=== PATIENT | female | born 1995 | race Caucasian/White ===

== ENCOUNTER 2020-01-25 00:21 | Outpatient (CLI) | payer OTHER, SELFPAY ==
[2020-01-25 18:42] LABS: SARS-CoV-2 RNA PCR Negative
== END 2020-01-25 00:22 | disposition home or self-care (01) ==
LOC: ANHCOVIDDT 00:22
PROVIDERS: Visit Provider Internal Medicine Gastroenterology
DX: Z01.812 Encounter for preprocedural laboratory examination (principal); Z11.59 Encounter for screening for other viral diseases
CPT/HCPCS: 87635; C9803; U0003

== ENCOUNTER 2020-01-26 08:38 | Outpatient (CLI) | payer OTHER, SELFPAY ==
[2020-01-26 09:34] LABS: Beta HCG Quantitative 17.42 mIU/ML
== END 2020-01-26 08:39 | disposition home or self-care (01) ==
PROVIDERS: Visit Provider Obstetrics & Gynecology
DX: N92.6 Irregular menstruation, unspecified (principal)
CPT/HCPCS: 36415; 84702

== ENCOUNTER 2020-02-01 16:09 | Outpatient (CLI) | payer OTHER, SELFPAY ==
[2020-02-04 20:38] LABS: Progesterone 15.8 ng/mL (***)
== END 2020-02-01 16:10 | disposition home or self-care (01) ==
PROVIDERS: Visit Provider Obstetrics & Gynecology
DX: Z34.90 Encounter for supervision of normal pregnancy, unspecified, unspecified trimester (principal); Z3A.00 Weeks of gestation of pregnancy not specified
CPT/HCPCS: 36415; 84144; 84702

== ENCOUNTER 2020-05-23 16:06 | Outpatient (CLI) | payer OTHER, SELFPAY ==
[2020-05-23 18:11] LABS: Glucose 1 Hour PP 50gm Dose 110 mg/dL
== END 2020-05-23 16:07 | disposition home or self-care (01) ==
LOC: ANHLAB 16:08
PROVIDERS: Visit Provider Obstetrics & Gynecology
DX: O09.91 Supervision of high risk pregnancy, unspecified, first trimester (principal); Z3A.00 Weeks of gestation of pregnancy not specified
CPT/HCPCS: 36415; 82947

== ENCOUNTER 2020-07-20 14:37 | Outpatient (NON) | payer OTHER, SELFPAY | END 2020-07-20 14:38 | PROVIDERS: Visit Provider Obstetrics & Gynecology | DX: R19.7 Diarrhea, unspecified (principal) | CPT/HCPCS: 87045; 87046; 87177; 87209; 87427 ==

== ENCOUNTER 2020-07-21 11:07 | Outpatient (RCR) | payer OTHER, SELFPAY ==
--- NOTE | ~2020-07-21 | US_ITS ---
US OB limited 07/21/2020 12:24 Indication: Polyhydramnios Procedure: High-resolution Limited obstetrical ultrasound Comparison: No prior studies for comparison. Findings: There is a single living intrauterine in transverse presentation. Placenta is pos terior/fundal. AISHA is normal measuring 14.9 cm (normal range for gestational age is 9.2-23.1 cm). Fet al heart rate is 142 BPM. Impression: 1: Normal AISHA measures 14.9 cm. Reviewed, dictated and finalized at location A. STAFF Impression: 1: Normal AISHA measures 14.9 cm.
[2020-07-21 12:30] VITALS: BP 105/71; PULSE 101
== END 2020-09-22 07:41 | disposition home or self-care (01) ==
LOC: ANHOBOP 11:07
PROVIDERS: Visit Provider Obstetrics & Gynecology
DX: O36.8130 Decreased fetal movements, third trimester, not applicable or unspecified (principal); Z3A.29 29 weeks gestation of pregnancy
CPT/HCPCS: 59025; 76815

== ENCOUNTER 2020-07-26 16:20 | Outpatient (CLI) | payer OTHER, SELFPAY ==
[2020-07-26 18:05] LABS: Basophils Percent Auto 0.2 % (0.2-1.2); Eosinophils Absolute Auto 0.1 K/mm3 (0-0.3); Eosinophils Percent Auto 0.8 % (0-4.4); Hematocrit 35.7 % (37.0-47.0); Hemoglobin 11.4 g/dL (12.0-15.0); Immature Granulocyte Percent A 0.8 % (0-0.5); Lymphocytes Absolute Auto 2.83 K/mm3 (0.9-3.2); Lymphocytes Percent Auto 23.3 % (18.3-44.2); Mean Corpuscular HGB Conc 31.9 g/dl (32-36); Mean Corpuscular Hemoglobin 25.9 pg (26-34); Mean Corpuscular Volume 81.1 fl (80-100); Mean Platelet Volume 9.6 fl (7.4-10.4); Monocytes Absolute Auto 0.8 K/mm3 (0.1-0.6); Monocytes Percent Auto 6.2 % (2.6-8.5); Neutrophils Absolute Auto 8.3 K/mm3 (1.3-6.7); Neutrophils Percent Auto 68.7 % (45.5-73.1); Platelet Count Result 390 k/mm3 (150-375); Red Cell Distribution Width 15.4 % (11.5-14.5); White Blood Count 12.1 K/mm3 (4.5-10.0)
[2020-07-26 18:17] LABS: Glucose 1 Hour PP 50gm Dose 131 mg/dL
[2020-07-26 18:58] LABS: HIV 1/2 Ab P24 Ag Result Negative (Negative)
[2020-07-27 07:43] LABS: Rapid Plasma Reagin Non-Reactive (NonReactive)
== END 2020-07-26 16:21 | disposition home or self-care (01) ==
PROVIDERS: Visit Provider Obstetrics & Gynecology
DX: O09.91 Supervision of high risk pregnancy, unspecified, first trimester (principal); Z3A.00 Weeks of gestation of pregnancy not specified
CPT/HCPCS: 36415; 82947; 85025; 86592; 86703; G0432

== ENCOUNTER 2020-08-01 07:41 | Outpatient (CLI) | payer OTHER, SELFPAY ==
[2020-08-01 08:07] LABS: Glucose Fasting Gestational 80 mg/dL (>/=95)
[2020-08-01 10:10] LABS: Glucose 1 Hour Gest 157 mg/dL (>/=180)
[2020-08-01 10:29] LABS: Glucose 2 Hour Gest 116 mg/dL (>/= 155)
[2020-08-01 11:38] LABS: Glucose 3 Hour Gest 95 mg/dL (>/=140)
== END 2020-08-01 07:42 | disposition home or self-care (01) ==
PROVIDERS: Visit Provider Obstetrics & Gynecology
DX: R73.09 Other abnormal glucose (principal)
CPT/HCPCS: 36415; 82951; 82952

== ENCOUNTER 2020-09-20 16:52 | Inpatient (IN) | payer OTHER, SELFPAY ==
[2020-09-20 17:08] VITALS: BMI 45.3
[2020-09-20 17:19] VITALS: BP 143/103; PULSE 111
[2020-09-20 17:30] VITALS: TEMP 37.1
[2020-09-20 17:41] VITALS: BP 110/70; PULSE 101
[2020-09-20 17:50] LABS: Basophils Percent Auto 0.2 % (0.2-1.2); Eosinophils Absolute Auto 0.1 K/mm3 (0-0.3); Eosinophils Percent Auto 0.4 % (0-4.4); Hemoglobin 10.7 g/dL (12.0-15.0); Immature Granulocyte Absolute 0.09 K/mm3 (0.00-0.031); Immature Granulocyte Percent A 0.7 % (0-0.5); Lymphocytes Absolute Auto 3.03 K/mm3 (0.9-3.2); Mean Corpuscular HGB Conc 31.5 g/dl (32-36); Mean Corpuscular Hemoglobin 24.9 pg (26-34); Mean Corpuscular Volume 79.1 fl (80-100); Monocytes Percent Auto 8.6 % (2.6-8.5); Neutrophils Absolute Auto 7.9 K/mm3 (1.3-6.7); Neutrophils Percent Auto 65.1 % (45.5-73.1); Nucleated Red Blood Cells Perc 0.2 % (0.0-0.2); Platelet Count Result 380 k/mm3 (150-375); Red Cell Distribution Width 17.2 % (11.5-14.5); White Blood Count 12.1 K/mm3 (4.5-10.0)
[2020-09-20] MEDS: DINOPROSTONE 10 MG VAG INSERT VAGINAL (17:56)
[2020-09-20 19:08] VITALS: BP 138/84; PULSE 93
[2020-09-20 19:31] VITALS: BP 109/51; PULSE 82
[2020-09-21] VITALS (165 sets, daily range): BP systolic 94–143; BP diastolic 36–111; PULSE 79–117; TEMP 36.2–37.2; O2SAT 89–100
--- NOTE | 2020-09-21 07:04 | WPDANESEPP ---
Anes - Eval Pre Procedure Procedure: Labor Epidural Date/Time: 09/21/20 07:04 Surgeon: Garrison Preop Diagnosis: Labor pain Pre Op Diagnosis: Induction of Labor Patient Data Age: 25 Gender: F Height: 5 ft 1 in Weight: 109 kg Last Vital Signs Temp 36.3 C L 09/21/20 05:07 Pulse 92 09/21/20 05:05 BP 121/79 09/21/20 05:05 Allergies Allergy/AdvReac Type Severity Reaction Status Date / Time No Known Allergies Allergy Unknown Verified 09/20/20 17:14 Home Medications Medication Instructions Recorded Confirmed Type omeprazole 20 mg capsule,delayed 20 mg PO DAILY PRN 01/08/20 09/20/20 History release hydrocortisone 5 mg PO TID 01/20/20 09/20/20 History prenat.vits,srinivasan,[id number] 1 tablet PO DAILY 04/06/20 09/20/20 History nystatin-triamcinolone 1 applic TOPICAL TID PRN 07/21/20 09/20/20 History ondansetron 4 mg disintegrating 4 mg PO Q8H PRN #30 tablet 08/05/20 09/20/20 Rx tablet Laboratory Tests 09/20/20 09/20/20 09/20/20 17:35 17:35 17:35 WBC 12.1 K/mm3 H K/mm3 (4.5-10.0) RBC 4.30 M/mm3 M/mm3 (4.2-5.4) Hgb 10.7 g/dL L g/dL (12.0-15.0) Hct 34.0 % L % (37.0-47.0) MCV 79.1 fl L fl (80-100) MCH 24.9 pg L pg (26-34) MCHC 31.5 g/dl L g/dl (32-36) RDW 17.2 % H % (11.5-14.5) Plt Count 380 k/mm3 H k/mm3 (150-375) MPV 10.0 fl fl (7.4-10.4) Immature Gran % (Auto) 0.7 % H % (0-0.5) Neut % (Auto) 65.1 % % (45.5-73.1) Lymph % (Auto) 25.0 % % (18.3-44.2) [place] % (Auto) 8.6 % H % (2.6-8.5) Eos % (Auto) 0.4 % % (0-4.4) Baso % (Auto) 0.2 % % (0.2-1.2) Lymph # (Auto) 3.03 K/mm3 K/mm3 (0.9-3.2) [place] # (Auto) 1.0 K/mm3 H K/mm3 (0.1-0.6) Eos # (Auto) 0.1 K/mm3 K/mm3 (0-0.3) Baso # (Auto) 0.0 K/mm3 K/mm3 (0.0-0.1) Abs Immat Gran (auto) 0.09 K/mm3 H K/mm3 (0.00-0.031) Absolute Neuts (auto) 7.9 K/mm3 H K/mm3 (1.3-6.7) Absolute Nucleated RBC 0.0 K/mm3 K/mm3 (0.0-0.012) Nucleated RBC % 0.2 % % (0.0-0.2) RPR Pending Blood Type O Positive Antibody Screen Negative : gestational age (SANT[place] 10/06/20, ) HCG: positive Patient hx anesthesia problems: none Family hx anesthesia problems: none [facility] Past Medical History Medical History BRBPR (bright red blood per rectum) Gale syndrome Diverticulitis large intestine GERD (gastroesophageal reflux disease) History of pituitary adenoma Nausea Pituitary adenoma Surgical History Surgical History Hx of brain surgery Family History Family History Other No pertinent family history Social History Social History Smoking status: Never smoker Alcohol intake: never Substance use: never 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
[2020-09-21 07:27] LABS: Rapid Plasma Reagin Non-Reactive (NonReactive)
[2020-09-21] MEDS: OXYTOCIN 30 UNITS/NS 500 ML 30 UNITS/500 ML BAG IV CONT (08:04)
[2020-09-21] MEDS: LACTATED RINGERS 1,000 ML 125 ML IV CONT ×3 (08:04→19:44)
[2020-09-21] MEDS: HYDROCORTISONE SODIUM SUCCINATE 100 MG/2 ML VIAL IV PUSH ×2 (08:08→15:59)
--- NOTE | 2020-09-21 12:31 | PM.IMHP ---
H&P: HPI History of Present Illness Date/Time: 09/21/20 12:31 Chief Complaint: Medical induction of labor. Narrative: Mable Roca is a 25 year old female at 35 6/7 weeks admitted for MIL for intrauterine growth restriction. Last ultrasound with efw at 4%. She has ranged from 3-6% since diagnosis. She has had reassuring testing and normal doppler studies. PNC significant for secondary adrenal insufficiency status post resection resection of pituitary adenoma. She has been maintained on oral hydrocortisone. Her maintenance has been 10mg twice a day. She has not had any exacerbation symptoms. She has been seen by hydrometeorologist and neurologist. She also had history of polyhydramnios which resolved. History of UTI during which was treated. In office cervix int os closed thick. Labs reviewed. GBS neg. Review of Systems Review of Systems: All systems reviewed & are unremarkable except as noted in HPI and below Constitutional: Constitutional: Reports no additional constitutional complaints and Denies headache(s) Eyes: Eyes: Denies spots in vision ENT: Reports system reviewed and no additional complaints, except as documented and Denies headache(s) Cardiovascular: Cardiovascular: Denies chest pain and Denies dyspnea Respiratory: Respiratory: Denies dyspnea Gastrointestinal: Gastrointestinal: Reports no additional gastrointestinal complaints Genitourinary: Genitourinary: Reports amenorrhea Musculoskeletal: Musculoskeletal: Reports no additional musculoskeletal complaints Integumentary/Breasts: Skin/Breast: Denies breast mass and Denies rash Neurologic: Denies headache(s) Psychiatric: Psychiatric: Reports no additional psychiatric complaints PMFSH Past Medical History Medical History BRBPR (bright red blood per rectum) Gale syndrome Diverticulitis large intestine GERD (gastroesophageal reflux disease) History of pituitary adenoma Nausea Pituitary adenoma Surgical History Surgical History Hx of brain surgery Family History Family History Other No pertinent family history Social History Social History Smoking status: Never smoker Alcohol intake: never Substance use: never 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[employer] Gender identity (if verbalized by the patient): Female Spiritual care concerns: No Meds Home Medications and Allergies Home Medications Medication Instructions Recorded Confirmed Type omeprazole 20 mg capsule,delayed 20 mg PO DAILY PRN 01/08/20 09/20/20 History release hydrocortisone 5 mg PO TID 01/20/20 09/20/20 History prenat.vits,srinivasan,[id number] 1 tablet PO DAILY 04/06/20 09/20/20 History nystatin-triamcinolone 1 applic TOPICAL TID PRN 07/21/20 09/20/20 History ondansetron 4 mg disintegrating 4 mg PO Q8H PRN #30 tablet 08/05/20 09/20/20 Rx tablet Allergies Allergy/AdvReac Type Severity Reaction Status Date / Time No Known Allergies Allergy Unknown Verified 09/20/20 17:14 Vital Signs Vital Signs - 24 hr 09/20/20 17:19 09/20/20 17:30 09/20/20 17:41 Temperature 98.7 F Pulse Rate 111 H 101 H Blood Pressure 143/103 H 110/70 Pulse Oximetry 09/20/20 19:08 09/20/20 19:31 09/21/20 05:05 Temperature Pulse Rate 93 82 92 Blood Pressure 138/84 109/51 L 121/79 Pulse Oximetry 09/21/20 05:07 09/21/20 08:00 09/21/20 08:14 Temperature 97.4 F L 97.4 F L Pulse Rate 89 Blood Pressure 143/81 H Pulse Oximetry 09/21/20 08:31 09/21/20 09:01 09/21/20 09:31 Temperature Pulse Rate 90 93 94 Blood Pressure 127/74 120/76 114/79 Pulse Oximetry 09/21/20 10:01 09/21/20 10:31 09/21/20 11:01 Temperature Pulse Rate 86 95 96 Blood Pressure 123/79 133/73 125/73
--- NOTE | 2020-09-21 12:49 | P.PNOB_ITS ---
OB - PN: Subj Subjective Date/time seen: 09/21/20 0800 FHT 135 Cat 1, Ctx mild irreg 2-4 Cervix 1.5/50/-3. Will start Pitocin and Hydrocortisone IV. OB - PN: Obj Data Labs CBC & Chem 7: 09/20/20 17:35 Labs: Laboratory Results - last 24 hr 09/20/20 09/20/20 09/20/20 17:35 17:35 17:35 WBC 12.1 H RBC 4.30 Hgb 10.7 L Hct 34.0 L MCV 79.1 L MCH 24.9 L MCHC 31.5 L RDW 17.2 H Plt Count 380 H MPV 10.0 Immature Gran % (Auto) 0.7 H Neut % (Auto) 65.1 Lymph % (Auto) 25.0 [place] % (Auto) 8.6 H Eos % (Auto) 0.4 Baso % (Auto) 0.2 Lymph # (Auto) 3.03 [place] # (Auto) 1.0 H Eos # (Auto) 0.1 Baso # (Auto) 0.0 Abs Immat Gran (auto) 0.09 H Absolute Neuts (auto) 7.9 H Absolute Nucleated RBC 0.0 Nucleated RBC % 0.2 RPR Non-reactive Blood Type O Positive Antibody Screen Negative OB - PN A/P Time Spent With Patient Time: Total time spent is greater than 50% in coordination of care (as documented) at patient's floor/unit and/or counseling patient:
--- NOTE | 2020-09-21 14:04 | PM.OBPNVD ---
OB - PN: Subj Subjective Date/time seen: 09/21/20 14:04 FHT 135-140 Cat 1 ctx q 2. AROM clear with blood tinge. Cont pitocin. OB - PN: Obj Data Labs CBC & Chem 7: 09/20/20 17:35 Labs: Laboratory Results - last 24 hr 09/20/20 09/20/20 09/20/20 17:35 17:35 17:35 WBC 12.1 H RBC 4.30 Hgb 10.7 L Hct 34.0 L MCV 79.1 L MCH 24.9 L MCHC 31.5 L RDW 17.2 H Plt Count 380 H MPV 10.0 Immature Gran % (Auto) 0.7 H Neut % (Auto) 65.1 Lymph % (Auto) 25.0 [place] % (Auto) 8.6 H Eos % (Auto) 0.4 Baso % (Auto) 0.2 Lymph # (Auto) 3.03 [place] # (Auto) 1.0 H Eos # (Auto) 0.1 Baso # (Auto) 0.0 Abs Immat Gran (auto) 0.09 H Absolute Neuts (auto) 7.9 H Absolute Nucleated RBC 0.0 Nucleated RBC % 0.2 RPR Non-reactive Blood Type O Positive Antibody Screen Negative OB - PN A/P Time Spent With Patient Time: Total time spent is greater than 50% in coordination of care (as documented) at patient's floor/unit and/or counseling patient:
[2020-09-21] MEDS: ONDANSETRON INJ 4 MG/2 ML VIAL IV PUSH (14:41)
--- NOTE | 2020-09-21 21:30 | PM.OBPRVD ---
OB - Delivery Note Procedure Delivery date: 09/21/20 Procedure: Spontaneous vaginal delivery Induction method: per misoprostol protocol Delivery augmentation: rupture of membranes Delivery monitor: external FHT and internal uterine Route of delivery: Laceration Description: Vaginal - 1st Degree Delivery repair: vicryl (figure of eight 3.0 vicryl) Specimen: Yes (Placenta and cord) Quantitative Blood Loss (ml): 150 Anesthesia type: Epidural Disposition: floor Complications: None Narrative: Patient admitted for cervidil on 09/20/20 for IUGR. Cervix closed/thick. On the morning of 09/21/20 Cervidil removed. Cervix 1.5/50/-3. She was started on Pitocin and IV hydrocortisone. She requested an epidural. She had AROM at approximately 1345. IUPC placed due to inability to monitor contractions. She progressed to active labor and then complete. She pushed twice and delivered a female . Infant was vigorously crying upon delivery and placed on maternal abdomen. Delayed cord clamping. Placenta delivered spontaneously and intact. Uterine tone was good. She had a small laceration at vaginal introitus that had a some bleeding. Hemostasis obtained with a figure of eight stitch of 3.0 vicryl. Patient tolerated procedure. EBL 150cc. [place] Baby Date of : 09/21/20 Time of : 21:10 Weeks of gestation at delivery: 37 Infant gender: Female Weight (pounds): 5 Weight (ounces): 1 presentation: vertex position: Right Occiput Anterior Placenta delivery description: Spontaneous (intact) cord vessel description: Delayed Cord Clamping score one minute: 8 score five minutes: 8
[2020-09-21] MEDS: LANOLIN (LANSINOH) 7.5 GM CREAM 1 APPLIC TOPICAL (21:40)
[2020-09-21] MEDS: OXYTOCIN 30 UNITS/NS 500 ML 30 UNITS/500 ML BAG 125 UNITS IV CONT (21:40)
[2020-09-21] MEDS: BENZOCAINE 20% AER SPR (*SP) 56 GM CAN 1 SPRAY TOPICAL (21:40)
[2020-09-21] MEDS: WITCH HAZEL 40 PADS 1 PAD TOPICAL (21:40)
[2020-09-21] MEDS: IBUPROFEN 600 MG TABLET PO (22:07)
--- NOTE | 2020-09-21 23:38 | PC.NURSE ---
This patient, Mable Roca, was received from Labor & Delivery on 09/21/20 at 2337. Patient/family oriented to unit policies and routines
[2020-09-22] VITALS: BP 133/79; PULSE 93; RESP 16; TEMP 36.7; O2SAT 98
[2020-09-22] MEDS: HYDROCORTISONE SODIUM SUCCINATE 100 MG/2 ML VIAL IV PUSH ×3 (02:11→17:54)
[2020-09-22 05:23] VITALS: BP 127/68; PULSE 87; PULSE 93; RESP 16; TEMP 36.4; O2SAT 97; O2SAT 98
[2020-09-22 05:49] LABS: Hemoglobin 10.4 g/dL (12.0-15.0)
--- NOTE | 2020-09-22 08:40 | PM.OBPNVD ---
OB - PN: Subj Subjective Date/time seen: 09/22/20 08:40 No complaints. Mild lochia. No fatigue, SOB or chest pain. Patient comments: pain well controlled, tolerating diet and other (Decreasing lochia.) [place] baby status: doing well and nursing well feeding status: exclusively breast feeding OB - PN: Obj Data Labs CBC & Chem 7: 09/22/20 05:17 Labs: Laboratory Results - last 24 hr 09/22/20 05:17 Hgb 10.4 L Hct 33.0 L OB - PN A/P Plan day: 1 Plan: routine care Comments: Patient doing well. Continue IV hydrocortisone until 24 hours after delivery and then will resume oral steroids. Routine care. Time Spent With Patient Time: Total time spent is greater than 50% in coordination of care (as documented) at patient's floor/unit and/or counseling patient: Exam Extrem: Other: 1-2+ LE edema, neg leonora's bilat Psych: Affect: normal affect Other: Abd: fundus firm below umbilicus, nontender Perineum: healing Ext: nontender
--- NOTE | 2020-09-22 08:42 | WPDANLDPN2 ---
Anes-Prog Note L&D Date/Time: 09/22/20 08:42 Comfortable throughout: labor and delivery Neuraxial method: epidural Epidural/Spinal procedure site: clean & non-tender Neuro status: Neuro function grossly intact. Cardiovascular status: normal Respiratory status: normal Airway patency: baseline Mental status: baseline Post-Op hydration status: normal Vital Signs: Last Vital Signs Temp 97.6 F 09/22/20 05:23 Pulse 93 09/22/20 05:23 Resp 16 09/22/20 05:23 BP 127/68 09/22/20 05:23 Pulse Ox 98 09/22/20 05:23 Pain score (VAS): 0/10 I/O: Intake & Output 09/21/20 09/22/20 09/22/20 23:59 07:59 15:59 Intake Total 1000 250 Output Total 300 Balance 700 250 Post-procedural complaints: none Patient feedback: Patient satisfied with anesthetic care.
--- NOTE | 2020-09-22 08:45 | PC.NURSE ---
Consulted with patient, reports infant has fed well using a nipple shield since . Mother has slight discomfort with latch during most of the feeding. Advised warm moist heat for 10 minutes and lanolin. Reviewed infant feeding cues, frequencies, duration of feedings, feeding elimination flow sheet, and signs of adequate intake. Demonstrated stimulation techniques to wake for feeding. Assisted with to breast. Reviewed positioning/alignment in cross cradle, holding breast in U hold and guided asymmetrical latch on. Infant was sleepy and made weak attempts to latch. Attempt for 10-15 minutes with no success. Suggested skin to skin and attempt again in 30 minutes.
[2020-09-22] MEDS: IBUPROFEN 600 MG TABLET PO ×2 (09:22→16:54)
[2020-09-22] MEDS: MULTIVIT/MIN/PREN/FOL AC/IRON TABLET 1 TAB PO (09:22)
[2020-09-22] MEDS: DOCUSATE SODIUM 100 MG CAPSULE PO (09:22)
--- NOTE | 2020-09-22 09:30 | PC.NURSE ---
Assist with to breast. Demonstrated stimulation techniques to wake . remains sleepy. Assisted with to breast. Reviewed positioning/alignment in cross cradle, holding breast in U hold and guided asymmetrical latch on. Infant was sleepy and made weak attempts to latch. Attempt for 10-15 minutes with no success. Suggested skin to skin and attempt again in 30 minutes. Initialized on 09/22/20 13:53 - END OF NOTE
--- NOTE | 2020-09-22 11:05 | PC.NURSE ---
Attempt infant to breast. remains sleepy and not making attempt to open for latch. Discussed pumping or self expression to offer EBM for feeding. Mother is willing to pump. Mother would like to use her Spectra pump. Instructions given on breast pump care and usage, pumping schedule, nipple care, and collection and storage of breast milk. Encouraged [id number], breast massage and manual expression to stimulate supply. Assessed patient for correct flange size, placement and draw. Patient verbalizes and demonstrates understanding of instructions. 1 ml of EBM with 10 mls formula to infant for this feeding.
[2020-09-22 11:10] VITALS: BP 133/81; PULSE 83; RESP 18; TEMP 36.6; O2SAT 99
[2020-09-22 14:00] VITALS: BP 140/81; PULSE 87; RESP 18; TEMP 36.3; O2SAT 98
[2020-09-22 20:00] VITALS: BP 127/60; PULSE 78; RESP 16; TEMP 36.4; O2SAT 100
[2020-09-23 07:55] VITALS: BP 128/81; PULSE 65; RESP 18; TEMP 37; O2SAT 100
--- NOTE | 2020-09-23 08:27 | P.PNOB_ITS ---
OB - PN: Subj Subjective Date/time seen: 09/23/20 08:27 Patient comments: pain well controlled, tolerating diet and flatus present baby status: doing well and nursing well [place] feeding status: exclusively breast feeding Narrative: Pain well controlled Tolerating regular diet Ambulating and urinating without difficulty Lochia like her menses Baby girl doing well and BF OB - PN: Obj Data Labs CBC & Chem 7: 09/22/20 05:17 OB - PN A/P Plan day: 2 Plan: routine care, discharge home, follow up 6 weeks (PP checkup) and other Comments: f/u in [address] Ji Time Spent With Patient Time: Total time spent is greater than 50% in coordination of care (as documented) at patient's floor/unit and/or counseling patient: Time with patient: 15 - 25 minutes Review of Systems Constitutional: Constitutional: Reports as per HPI, Denies chills, Denies fever(s) and Denies headache(s) Eyes: Eyes: Denies blurry vision and Denies change in vision ENT: Reports Normal hearing present Cardiovascular: Cardiovascular: Denies chest pain, Denies syncope, Denies lightheadedness and Denies dyspnea Respiratory: Respiratory: Reports as per HPI, Denies cough and Denies dyspnea Gastrointestinal: Gastrointestinal: Reports as per HPI Genitourinary: Genitourinary: Reports as per HPI Musculoskeletal: Musculoskeletal: Reports as per HPI Exam Const: General: cooperative, healthy appearing, comfortable, no acute distress, well developed, alert, awake, Physically active and well groomed Nutritional Appearance: well nourished Orientation/consciousness: patient oriented x3 Limitations: no limitations HENMT: Head: normal to inspection Resp: Effort & Inspection: normal respiratory effort and able to speak in complete sentences Auscultation: clear to auscultation bilaterally Cardio: Rate: regular rate Rhythm: regular rhythm GI: Inspection: normal to inspection GI Palp: No abdominal tenderness, Yes Soft to palpation and Yes Other GI palpation findings present (Fundus firm below umbilicus) Auscultation: normal bowel sounds Rectal Exam: deferred Neuro: General: patient oriented x3 Extrem: General: normal to inspection, full ROM and no calf tenderness
--- NOTE | 2020-09-23 08:31 | PM.OBDSVD ---
DS: Admitting Diagnosis Admitting Diagnosis Admitting Diagnosis: IOL for IUGR OB - DS: Summary OB Procedures : Ultrasound OB Procedures Intrapartum: Spontaneous Vag Delivery OB Procedures: : None Peripartum Data Infant Delivery Method: Natural Vaginal Laceration Description: Vaginal - 1st Degree complications: none Status at Discharge Functional status at discharge: independent ambulation Overall status at discharge: patient is progressing back to baseline Time Spent with Patient Time attestation: Total time spent providing and/or coordinating discharge services: Exam Const: General: cooperative, healthy appearing, comfortable, no acute distress, well developed, alert, awake and Physically active Nutritional Appearance: well nourished Orientation/consciousness: patient oriented x3 Limitations: no limitations HENMT: Head: normal to inspection Ears: hearing grossly normal bilaterally Resp: Effort & Inspection: normal respiratory effort and able to speak in complete sentences Auscultation: clear to auscultation bilaterally Cardio: Rate: regular rate Rhythm: regular rhythm GI: Inspection: normal to inspection GI Palp: No abdominal tenderness, Yes Soft to palpation and Yes Other GI palpation findings present (Fundus firm and below umbilicus) Auscultation: normal bowel sounds Rectal Exam: deferred Skin: General skin exam: normal color Neuro: General: oriented to person, oriented to place, oriented to time, patient oriented x3 and moves all extremities Cognition (Neuro): normal cognition Speech: normal speech Extrem: General: normal to inspection, full ROM and no calf tenderness Psych: Appearance: grossly normal Mental Status: mental status grossly normal Speech and movement: Normal speech and movement present Affect: normal affect Attitude: cooperative Thought process: Normal thought process present Thought content: Yes Normal thought content present Insight: Good insight present (Psych) Judgement: Good judgement present (Psych) DS: Data Data Completed and Pending Pending studies at discharge: Pending at discharge 09/21/20 21:14 Surgical [PTH] Routine Discharge Plan Discharge Attending physician on discharge: Noris Gomez Discharging Clinician: Noris Gomez Patient Disposition: Home, Self-Care Activity: pelvic rest Diet: regular Patient Instructions: Antibiotic Form Stand Alone Forms: General Discharge Information Follow-up/Referrals: Zeyad Ji MD [Physician] - Discharge Medications: New ibuprofen 600 mg Tablet 600 mg PO Q6H PRN (Reason: Cramping) Qty: 60 RF: 0 docusate sodium 100 mg Capsule 100 mg PO BID PRN (Reason: Constipation) Qty: 60 RF: 0 Continued prenat.vits,srinivasan,[id number] Tablet 1 tablet PO DAILY RF: 0 omeprazole 20 mg capsule,delayed release(DR/EC) 20 mg PO DAILY PRN (Reason: Heartburn) RF: 0 hydrocortisone 5 mg Tablet 5 mg PO TID RF: 0 Discontinued nystatin-triamcinolone 100,000-0.1 unit/g-% cream 1 applic TOPICAL TID PRN (Reason: Rash) RF: 0 ondansetron 4 mg tablet,disintegrating 4 mg PO Q8H PRN (Reason: nausea and vomiting) Qty: 30 RF: 0 Date of admission: 09/20/20 16:52 Admitting Provider: Zeyad Ji Attending physician on admission: Zeyad Ji Condition: Stable
[2020-09-23] MEDS: MULTIVIT/MIN/PREN/FOL AC/IRON TABLET 1 TAB PO (09:17)
--- NOTE | 2020-09-23 10:00 | PC.NURSE ---
Consult with pt., parents report infant has been sleepy during the night and mother has supplemented every feeding. Mother is teary with discussion and states she wishes to move toward exclusive breastmilk if does not begin to eagerly latch. Assured mother to continue with supplement and pump, milk should transition in within a few days and infant should be more awake and eager with latching. Suggested massage, warm compresses to breast and few minutes of self expression. Infant is eagerly nippling 15-20 mls of formula. FOB is bottle feeding while mother pumps. Discussed increasing supplementation in small increments of 5mls for a few feedings as desires. Mother denies difficulties or discomfort with pumping and has a Spectra for home use. Mother is feeding as required and waking to feed if needed. is currently meeting outcomes for weight, output, jaundice and feeding frequencies. Mother states she feels confident to continue effective at home. Reviewed transition to breast milk, signs of adequate intake, and engorgement/relief. Instructed to call ICP if intake/output less than required. Reviewed regular medications mother is taking. Information provided per Marta. Reviewed community resources on the [facility] website and in the Mom/Baby guide. Information on outpatient services provided. Mother has no further questions at this time.
[2020-09-26 10:37] VITALS: BP 138/82; PULSE 96; RESP 20; TEMP 36.9; O2SAT 100
== END 2020-09-23 15:10 | disposition home or self-care (01) | DRG 806 ==
LOC: ANHLDR 09-21 13:31 → ANHOB2 09-23 08:34 → ANHLDR 09-26 10:38 → ANHOB2 09-26 10:38
PROVIDERS: Admitting Provider Obstetrics & Gynecology; Visit Provider Obstetrics & Gynecology
DX: O36.5930 Maternal care for other known or suspected poor fetal growth, third trimester, not applicable or unspecified (principal); E27.49 Other adrenocortical insufficiency; Z37.0 Single live birth; Z3A.37 37 weeks gestation of pregnancy; O36.8330 Maternal care for abnormalities of the fetal heart rate or rhythm, third trimester, not applicable or unspecified; O70.0 First degree perineal laceration during delivery; O99.284 Endocrine, nutritional and metabolic diseases complicating childbirth; O99.62 Diseases of the digestive system complicating childbirth; K21.9 Gastro-esophageal reflux disease without esophagitis; O99.214 Obesity complicating childbirth; E66.01 Morbid (severe) obesity due to excess calories
CPT/HCPCS: 36415; 85014; 85018; 85025; 86592; 86850; 86900; 86901; 88307; A9270; J1720; J2405; J2590; J2795; J7120

== ENCOUNTER 2020-10-27 08:43 | Outpatient (CLI) | payer OTHER, SELFPAY | END 2020-10-27 08:44 | disposition home or self-care (01) | LOC: ANHCOVIDVC 08:43 | DX: Z23 Encounter for immunization (principal) | CPT/HCPCS: 0001A; 91300 ==

== ENCOUNTER 2020-11-17 08:45 | Outpatient (CLI) | payer OTHER, SELFPAY | END 2020-11-17 08:46 | disposition home or self-care (01) | LOC: ANHCOVIDVC 08:45 | DX: Z23 Encounter for immunization (principal) | CPT/HCPCS: 0002A; 91300 ==

== ENCOUNTER → 2020-11-19 01:38 | Outpatient (CLI) | payer OTHER, SELFPAY ==
[2020-11-20 14:52] LABS: SARS-CoV-2 RNA PCR Negative
== END ==
PROVIDERS: Visit Provider Internal Medicine Gastroenterology
DX: Z01.812 Encounter for preprocedural laboratory examination (principal); Z20.822 Contact with and (suspected) exposure to COVID-19
CPT/HCPCS: C9803; U0003; U0005

== ENCOUNTER 2020-11-23 00:46 | Day surgery (SDC) | payer OTHER, SELFPAY ==
[2020-11-14 08:59] VITALS: BMI 41.6
[2020-11-23] MEDS: LACTATED RINGERS 1,000 ML 150 ML IV CONT (11:17)
[2020-11-23 11:20] VITALS: BP 127/75; PULSE 94; RESP 16; TEMP 36.4; O2SAT 99; BMI 41.2
--- NOTE | 2020-11-23 11:26 | P.PNAN_ITS ---
Anes - Initial Pre Proc Eval Procedure: Operation Date: 11/23/20 12:15 Proposed Procedures p Esophagogastroduodenoscopy & Colonoscopy - Maynor Concepcion MD s [facility] Hemorrhoid Treatment - Maynor Concepcion MD Date/Time: 11/23/20 11:26 Surgeon: Maynor Concepcion MD Pre Op Diagnosis: GERD, internal hemorrhoids, melena Patient Data Age: 25 Gender: F Height: 5 ft 1 in Weight: 99 kg Last Vital Signs Temp 97.6 F 11/23/20 11:20 Pulse 94 11/23/20 11:20 Resp 16 11/23/20 11:20 BP 127/75 11/23/20 11:20 Pulse Ox 99 11/23/20 11:20 Allergies Allergy/AdvReac Type Severity Reaction Status Date / Time No Known Allergies Allergy Unknown Verified 11/23/20 11:07 Home Medications Medication Instructions Recorded Confirmed Type omeprazole 20 mg capsule,delayed 20 mg PO DAILY PRN 01/08/20 11/23/20 History release hydrocortisone 5 mg PO TID 01/20/20 11/23/20 History prenat.vits,srinivasan,vyf-[id number] 1 tablet PO DAILY 04/06/20 11/23/20 History norethindrone (contraceptive) 0.35 0.35 mg PO DAILY #84 tablet 09/29/20 11/23/20 Rx mg tablet Patient hx anesthesia problems: none Family hx anesthesia problems: none PMFSH Past Medical History Medical History BRBPR (bright red blood per rectum) Burkburnett syndrome Diverticulitis large intestine GERD (gastroesophageal reflux disease) History of pituitary adenoma Nausea Pituitary adenoma Vaginal delivery Surgical History Surgical History (Updated 11/22/20 @ 13:08 by Liam Barillas DO) Hx of brain surgery 30% excision of pituitary gland Family History Family History Other No pertinent family history Social History Social History Smoking status: Never smoker Alcohol intake: never Substance use: never Substance use type: does not use Living arrangements: alone 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[employer] Gender identity (if verbalized by the patient): Female Spiritual care concerns: No Anes - Eval Final PreProcedure Day of Procedure 11/23/20 11:26 Patient weight: morbidly obese Heart: regular rate and rhythm Lungs: clear to auscultation Airway: Mallampati scale class II Neurological: alert and oriented Last oral intake: >/= 8 hours ASA classification: III Emergent: no Anesthetic plan: proceed Anesthesia type and monitoring: general GIVS and standard monitoring Informed Consent: The patient's anesthetic plan and its attendant risks and benefits were discussed with the patient/family/POA. Questions were solicited and answers provided to the satisfaction of the patient/family/POA.
--- NOTE | 2020-11-23 12:32 | PM.HPGS ---
History of Present Illness History of Present Illness Consent: Risks, benefits, and alternatives have been discussed and questions answered. Patient agrees to proceed with procedure. Chief complaint: GERD, internal hemorrhoids, melena Narrative: Mable Roca is a 25 year old female with gerd on omeprazole, also diverticulitis several months ago and lately with more symptomatic hemorrhoids (recently gave ), never had scopes Review of Systems Constitutional: Constitutional: Denies headache(s) and Denies weakness Eyes: Eyes: Denies blurry vision ENT: Reports Normal hearing present, Denies headache(s) and Denies neck pain Cardiovascular: Cardiovascular: Denies chest pain and Denies dyspnea Respiratory: Respiratory: Denies dyspnea Gastrointestinal: Gastrointestinal: Reports no additional gastrointestinal complaints Genitourinary: Genitourinary: Denies dysuria Musculoskeletal: Musculoskeletal: Denies neck pain Integumentary/Breasts: Skin/Breast: Denies dry skin Neurologic: Reports Normal hearing present, Denies headache(s) and Denies weakness Psychiatric: Psychiatric: Denies anxiety Endocrine: Endocrine: Denies change in body appearance Hematologic/Lymphatic: Hematologic/Lymphatic: Denies easy bleeding Allergic/Immunologic: Allergic/Immunologic: Denies urticaria PMFSH Past Medical History Medical History BRBPR (bright red blood per rectum) [place] syndrome Diverticulitis large intestine GERD (gastroesophageal reflux disease) History of pituitary adenoma Nausea Pituitary adenoma Vaginal delivery Surgical History Surgical History (Updated 11/22/20 @ 13:08 by Liam Barillas DO) Hx of brain surgery 30% excision of pituitary gland Family History Family History Other No pertinent family history Social History Social History Smoking status: Never smoker Alcohol intake: never Substance use: never Substance use type: does not use Living arrangements: alone 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 [employer] Gender identity (if verbalized by the patient): Female Spiritual care concerns: No Meds Home Medications and Allergies Home Medications Medication Instructions Recorded Confirmed Type omeprazole 20 mg capsule,delayed 20 mg PO DAILY PRN 01/08/20 11/23/20 History release hydrocortisone 5 mg PO TID 01/20/20 11/23/20 History prenat.vits,srinivasan,iol-ahhj-dwarv 1 tablet PO DAILY 04/06/20 11/23/20 History norethindrone (contraceptive) 0.35 0.35 mg PO DAILY #84 tablet 09/29/20 11/23/20 Rx mg tablet Allergies Allergy/AdvReac Type Severity Reaction Status Date / Time No Known Allergies Allergy Unknown Verified 11/23/20 11:07 Vital Signs Vital Signs - 24 hr 11/23/20 11:20 Temperature 97.6 F Pulse Rate 94 Respiratory Rate 16 Blood Pressure 127/75 Pulse Oximetry 99 Exam Const: General: comfortable and no acute distress HENMT: General nose exam: Normal nares present Eyes: General: appearance normal, both eyes and all related structures Neck: Neck: no JVD Resp: Auscultation: clear to auscultation bilaterally Cardio: Rate: regular rate Rhythm: regular rhythm GI: Inspection: non-distended GI Palp: Yes Soft to palpation Skin: General skin exam: normal color Neuro: General: gait normal Speech: normal speech Extrem: General: normal to inspection Psych: Mental Status: mental status grossly normal Assessment and Plan Assessment and plan (1) GERD (gastroesophageal reflux disease): Code(s): K21.9 - Gastro-esophageal reflux disease without esophagitis Status: Acute Assessment and Plan: egd with bx, on ppi as needed (2) Diverticulitis large intestine: Code(s): K57.32 - Diverticulitis of large intestine without perforation or abscess
[2020-11-23] MEDS: BENZOCAINE (*SP) 60 ML SPRAY CAN (HURRICAINE) 1 SPRAY MUCOUS MEM (12:39)
--- NOTE | 2020-11-23 12:56 | SUR.OPER ---
EGD ENDED 0, COLONOSCOPY STARTED 1255
[2020-11-23 13:09] VITALS: BP 100/58; PULSE 82; RESP 25; O2SAT 100
[2020-11-23 13:19] VITALS: BP 110/62; PULSE 80; RESP 22; O2SAT 100
[2020-11-23 13:29] VITALS: BP 109/58; PULSE 81; RESP 20; O2SAT 100
--- NOTE | 2020-11-23 13:55 | PM.PROC ---
Procedure Note - Detailed Date of procedure: 11/23/20 Pre-op diagnosis: GERD, internal hemorrhoids, melena Procedure performed: IRC (infrared coagulation) Description of procedure: Description of procedure: after she signed consent, I performed rectal exam, only small hemorrhoids and skin tags, no fissure. Then I introduced IRC using anoscope, found grade II internal hemorrhoids, treated with IRC x4 applications at 1.5 seconds each time, no complications. Patient was already under anesthesia because we just completed her colonoscopy. Complications: No immediate complications Condition: stable Surgeon: Maynor Concepcion MD
== END 2020-11-23 13:34 | disposition home or self-care (01) ==
PROVIDERS: Visit Provider Internal Medicine Gastroenterology
PROC: 0DJ08ZZ Inspection of Upper Intestinal Tract, Via Natural or Artificial Opening Endoscopic (ICD-10-PCS; CPT 43235; principal; 2020-11-23 12:15)
PROC: (CPT 46930; 2020-11-23 12:15)
DX: K92.1 Melena (principal); K57.30 Diverticulosis of large intestine without perforation or abscess without bleeding; K64.1 Second degree hemorrhoids; K64.4 Residual hemorrhoidal skin tags; K21.9 Gastro-esophageal reflux disease without esophagitis; R11.0 Nausea; E66.01 Morbid (severe) obesity due to excess calories; Z68.41 Body mass index [BMI] 40.0-44.9, adult
CPT/HCPCS: 45378; 43239; 88305; J2001; J2704; J7120

== ENCOUNTER 2021-01-04 08:56 | Outpatient (CLI) | payer OTHER, SELFPAY ==
[2021-01-04 10:24] LABS: Alanine Aminotransferase 27 U/L (4-35); Albumin Level 4.2 g/dL (3.5-5.1); Alkaline Phosphatase 90 U/L (38-126); Anion Gap 9 mmol/L (8-16); Aspartate Amino Transferase 42 U/L (14-36); Bilirubin,Total 0.1 mg/dL (0.2-1.3); Blood Urea Nitrogen 11 mg/dL (7-17); Calcium 9.5 mg/dL (8.4-10.2); Carbon Dioxide 29 mmol/L (22-30); Chloride 103 mmol/L (98-107); Estimated Glomerular Filt Rate > 60; Glucose 103 mg/dL (65-105); Sodium 141 mmol/L (137-145)
[2021-01-04 11:03] LABS: Vitamin D 25 Hydroxy 37.2 ng/mL
[2021-01-08 08:17] LABS: Prolactin 6.2 ng/mL (***)
== END 2021-01-04 08:57 | disposition home or self-care (01) ==
PROVIDERS: Visit Provider Obstetrics & Gynecology
DX: L65.9 Nonscarring hair loss, unspecified (principal)
CPT/HCPCS: 36415; 80053; 82306; 84146; 84436; 84443

== ENCOUNTER 2021-01-27 07:48 | Outpatient (CLI) | payer OTHER, SELFPAY ==
[2021-01-27 08:14] LABS: Hematocrit 41.8 % (37.0-47.0); Hemoglobin 12.9 g/dL (12.0-15.0)
[2021-01-27 08:32] LABS: Alanine Aminotransferase 31 U/L (4-35); Albumin Level 4.3 g/dL (3.5-5.1); Alkaline Phosphatase 114 U/L (38-126); Aspartate Amino Transferase 30 U/L (14-36); Bilirubin,Total 0.4 mg/dL (0.2-1.3)
[2021-01-27 08:47] LABS: Hemoglobin A1C 5.4 % (<5.7)
[2021-01-27 09:04] LABS: Free T4 Free Thyroxine 1.01 ng/mL (0.78-2.19); Free T4 Free Thyroxine 1.02 ng/mL (0.78-2.19)
[2021-01-30 04:32] LABS: Growth Hormone ICMA <0.1 ng/mL (<=7.1)
[2021-02-01 09:42] LABS: Z Score Female -1.6 SD (-2.0 - +2.0)
[2021-02-01 15:39] LABS: FSH 8.4 mIU/mL (***); LH 3.5 mIU/mL (***)
[2021-02-01 22:57] LABS: Estradiol, Ultrasensitive 14 pg/mL
== END 2021-01-27 07:49 | disposition home or self-care (01) ==
PROVIDERS: Referring Provider Internal Medicine Endocrinology, Diabetes & Metabolism; Visit Provider Obstetrics & Gynecology
DX: L65.9 Nonscarring hair loss, unspecified (principal); E24.0 Pituitary-dependent Cushing's disease; D35.2 Benign neoplasm of pituitary gland
CPT/HCPCS: 36415; 80076; 82533; 82670; 83001; 83002; 83003; 83036; 84305; 84439; 84443; 85014; 85018

== ENCOUNTER 2021-09-08 07:43 | Outpatient (CLI) | payer OTHER, SELFPAY ==
[2021-09-12 12:47] LABS: Adrenocorticotropic Hormone 17 pg/mL (6-50)
== END 2021-09-08 07:44 | disposition home or self-care (01) ==
PROVIDERS: Visit Provider Internal Medicine Endocrinology, Diabetes & Metabolism
DX: E24.0 Pituitary-dependent Cushing's disease (principal)
CPT/HCPCS: 36415; 82024; 82533

== ENCOUNTER 2021-09-11 07:27 | Outpatient (CLI) | payer OTHER, SELFPAY ==
[2021-09-11 10:56] LABS: Total Volume 24 Hour Urine 625 ml
[2021-09-11 11:14] LABS: Creatinine 24 Hour Urine 1.1 gm/24 (0.8-1.8); Creatinine Urine 188.9 mg/dL
== END 2021-09-11 07:28 | disposition home or self-care (01) ==
LOC: ANHLAB 07:30
PROVIDERS: Visit Provider Internal Medicine Endocrinology, Diabetes & Metabolism
DX: E24.0 Pituitary-dependent Cushing's disease (principal); D49.7 Neoplasm of unspecified behavior of endocrine glands and other parts of nervous system
CPT/HCPCS: 81050; 82530; 82570; 83835

== ENCOUNTER 2021-11-09 07:05 | Outpatient (CLI) | payer OTHER, SELFPAY ==
[2021-11-09 07:59] LABS: Hemoglobin A1C 5.2 % (<5.7)
[2021-11-09 08:20] LABS: Cortisol Random 0.65 ug/dL
== END 2021-11-09 07:06 | disposition home or self-care (01) ==
LOC: ANHLAB 07:08
PROVIDERS: Visit Provider Internal Medicine Endocrinology, Diabetes & Metabolism
DX: R73.03 Prediabetes (principal); E24.0 Pituitary-dependent Cushing's disease
CPT/HCPCS: 36415; 82533; 83036

== ENCOUNTER 2021-12-15 07:53 | Outpatient (CLI) | payer OTHER, SELFPAY ==
[2021-12-15 11:02] LABS: Cortisol Random 0.69 ug/dL
== END 2021-12-15 07:54 | disposition home or self-care (01) ==
LOC: ANHLAB 07:55
PROVIDERS: Visit Provider Internal Medicine Endocrinology, Diabetes & Metabolism
DX: D35.2 Benign neoplasm of pituitary gland (principal); E27.49 Other adrenocortical insufficiency
CPT/HCPCS: 36415; 80299; 82533

== ENCOUNTER 2022-01-29 08:23 | Outpatient (CLI) | payer OTHER, SELFPAY ==
[2022-01-29 09:02] LABS: Basophils Percent Auto 0.6 % (0.2-1.2); Eosinophils Absolute Auto 0.2 K/mm3 (0-0.3); Eosinophils Percent Auto 2.3 % (0-4.4); Hematocrit 40.9 % (37.0-47.0); Hemoglobin 13.6 g/dL (12.0-15.0); Immature Granulocyte Absolute 0.01 K/mm3 (0.00-0.031); Immature Granulocyte Percent A 0.2 % (0-0.5); Lymphocytes Absolute Auto 2.48 K/mm3 (0.9-3.2); Lymphocytes Percent Auto 38.2 % (18.3-44.2); Mean Corpuscular HGB Conc 33.3 g/dl (32-36); Mean Corpuscular Hemoglobin 27.4 pg (26-34); Mean Corpuscular Volume 82.3 fl (80-100); Mean Platelet Volume 8.6 fl (7.4-10.4); Monocytes Absolute Auto 0.4 K/mm3 (0.1-0.6); Monocytes Percent Auto 6.6 % (2.6-8.5); Neutrophils Absolute Auto 3.4 K/mm3 (1.3-6.7); Neutrophils Percent Auto 52.1 % (45.5-73.1); Platelet Count Result 374 k/mm3 (150-375); Red Blood Count 4.97 M/mm3 (4.2-5.4); Red Cell Distribution Width 13.6 % (11.5-14.5); White Blood Count 6.5 K/mm3 (4.5-10.0)
[2022-01-29 09:14] LABS: Alanine Aminotransferase 36 U/L (6-35); Albumin Level 4.1 g/dL (3.5-5.1); Alkaline Phosphatase 93 U/L (38-126); Anion Gap 8 mmol/L (8-16); Aspartate Amino Transferase 31 U/L (14-36); Bilirubin,Total 0.3 mg/dL (0.2-1.3); Blood Urea Nitrogen 8 mg/dL (7-17); Calcium 8.8 mg/dL (8.4-10.2); Carbon Dioxide 21 mmol/L (22-30); Chloride 109 mmol/L (98-107); Estimated Glomerular Filt Rate > 60; Glucose 98 mg/dL (65-110); Potassium 4.1 mmol/L (3.4-5.0); Sodium 138 mmol/L (137-145)
[2022-01-29 09:36] LABS: Iron 54 ug/dL (37-170)
[2022-01-29 09:43] LABS: Thyroid Stimulating Hormone 0.987 uIU/mL (0.465-4.680)
[2022-01-29 09:46] LABS: Percent Iron Saturation 15 % (20-50)
[2022-01-29 09:55] LABS: Free T4 Free Thyroxine 0.87 ng/mL (0.78-2.19)
== END 2022-01-29 08:24 | disposition home or self-care (01) ==
PROVIDERS: PCP Nurse Practitioner Family; Visit Provider Internal Medicine Endocrinology, Diabetes & Metabolism
DX: L65.9 Nonscarring hair loss, unspecified (principal); E24.0 Pituitary-dependent Cushing's disease
CPT/HCPCS: 36415; 80053; 83525; 83540; 83550; 84305; 84439; 84443; 85025

== ENCOUNTER 2022-03-09 01:19 | Day surgery (SDC) | payer OTHER, SELFPAY ==
[2022-03-01 16:57] VITALS: BMI 45.2
--- NOTE | 2022-03-01 17:02 | PC.NURSE ---
Report to the Outpatient Waiting Room, entrance under the green pavilion located off [facility], at time _0600_ on date _[id number]_. OR Time: _0845_. - You and your visitor will be asked to self-screen and do not enter if you have any COVID symptoms. - Only one visitor and NO children visitors are allowed at this time. - The patient visitor is requested to leave or wait in car when not with patient due to restrictions. - A mask is required within the hospital. Patients may have clear liquids (water, carbonated beverages, clear teas, apple juice) until 3 hours prior to surgery with a maximum of 20 ounces. - No food from midnight until time of surgery Take the following medications with a SIP of water the morning of surgery: ___None Medications to discontinue per physician None Date to take last dose Please no make-up, nail chinese, hairspray, perfume, deodorant, or body powder the day of surgery. No jewelry (including any body piercings) or valuables the day of surgery, leave them at home. Please take a shower or bath the night before, or the morning of, surgery with an antibacterial soap. Wear comfortable, loose fitting clothing. - Jewelry must be removed prior to entering the operating room. Rings and piercings that are not removed may be cut off. - The hospital will not accept responsibility for valuables. - Please leave all valuables, including medications, at home the day of surgery. If you are going home after surgery, a licensed driver starting gate must drive you home. - NO public transportation without another adult. - We recommend that an adult stay with you for 24 hours following discharge. - We also recommend that you do not drive, make important decision, drink alcoholic beverages, or take any drugs that were not prescribed by your health care provider for at least 24 hours after your discharge time. Follow any additional instructions given to you from your surgeon. If you or anyone in your household have experienced Covid symptoms in the past week, please notify your surgeon or the nurse liaison at the phone number below for possible testing. Telephone instructions given to ___Patient and asked if any additional questions and then verbalized understanding. Patient advised to call surgeon office or pre surgery nurse liaison [phone] if any additional questions.
--- NOTE | 2022-03-08 11:57 | P.PNAN_ITS ---
Anes - Initial Pre Proc Eval Procedure: Operation Date: 03/09/22 08:45 Proposed Procedures p Removal Bilateral Myringotomy Tubes, Replacement Bilateral Myringotomy Tubes - Jose Wooten MD Date/Time: 03/08/22 11:57 Surgeon: Jose Wooten MD Pre Op Diagnosis: bilat chronic otitis media Patient Data Age: 26 Gender: F Height: 1.55 m Weight: 108.6 kg Allergies Allergy/AdvReac Type Severity Reaction Status Date / Time No Known Allergies Allergy Unknown Verified 03/06/22 15:11 Home Medications Medication Instructions Recorded Confirmed Type omeprazole 20 mg capsule,delayed 20 mg PO DAILY PRN Heartburn #90 03/10/21 03/06/22 Rx release caps copper 380 square mm intrauterine 1 device intrauterine ONCE 09/25/21 03/06/22 History device (ParaGard T 380A) duloxetine 30 mg capsule,delayed 30 mg PO DAILY 03/01/22 03/06/22 History release (Cymbalta) Patient hx anesthesia problems: none Family hx anesthesia problems: none Results Review: All pre-operative results and documents have been reviewed as part of the pre- operative evaluation. FORMERLY [facility], [facility] Past Medical History Medical History BRBPR (bright red blood per rectum) [place] syndrome Diverticulitis large intestine GERD (gastroesophageal reflux disease) History of pituitary adenoma Nausea Pituitary adenoma Vaginal delivery Surgical History Surgical History History of placement of ear tubes Hx of brain surgery 30% excision of pituitary gland S/P foot surgery, right Family History Family History Other No pertinent family history Social History Social History Smoking status: Never smoker Alcohol intake: never Substance use: never Substance use type: does not use Living arrangements: with family 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[employer] Gender identity (if verbalized by the patient): Female Sexual Orientation (if Verbalized by the Patient): Straight or Heterosexual Spiritual care concerns: No Anes - Eval Final PreProcedure Day of Procedure 03/08/22 11:57 Patient weight: morbidly obese Heart: regular rate and rhythm Lungs: clear to auscultation Airway: Mallampati scale class II Neurological: alert and oriented Last oral intake: >/= 8 hours ASA classification: III Emergent: no Anesthetic plan: proceed Anesthesia type and monitoring: general GIVS and standard monitoring Results Review: All pre-operative results and documents have been reviewed as part of the pre- operative evaluation. Informed Consent: The patient's anesthetic plan and its attendant risks and benefits were discussed with the patient/family/POA. Questions were solicited and answers provided to the satisfaction of the patient/family/POA.
--- NOTE | 2022-03-08 13:39 | P.HP_ITS ---
H&P: HPI History of Present Illness Date/Time: 03/08/22 13:39 Chief Complaint: Otorrhea retained myringotomy tubes Narrative: planned surgical procedure Review of Systems Review of Systems: All systems reviewed & are unremarkable except as noted in HPI and below [facility] Past Medical History Medical History BRBPR (bright red blood per rectum) [place] syndrome Diverticulitis large intestine GERD (gastroesophageal reflux disease) History of pituitary adenoma Nausea Pituitary adenoma Vaginal delivery Surgical History Surgical History History of placement of ear tubes Hx of brain surgery 30% excision of pituitary gland S/P foot surgery, right Family History Family History Other No pertinent family history Social History Social History Smoking status: Never smoker Alcohol intake: never Substance use: never Substance use type: does not use 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 [employer] Gender identity (if verbalized by the patient): Female Sexual Orientation (if Verbalized by the Patient): Straight or Heterosexual Spiritual care concerns: No Meds Home Medications and Allergies Home Medications Medication Instructions Recorded Confirmed Type omeprazole 20 mg capsule,delayed 20 mg PO DAILY PRN Heartburn #90 03/10/21 03/06/22 Rx release caps copper 380 square mm intrauterine 1 device intrauterine ONCE 09/25/21 03/06/22 History device (ParaGard T 380A) duloxetine 30 mg capsule,delayed 30 mg PO DAILY 03/01/22 03/06/22 History release (Cymbalta) Allergies Allergy/AdvReac Type Severity Reaction Status Date / Time No Known Allergies Allergy Unknown Verified 03/06/22 15:11 Exam Narrative: retained myringotomy tubes Assessment and Plan Assessment and plan (1) Retained bilateral myringotomy tubes: Code(s): Z96.22 - Myringotomy tube(s) status Status: Acute Assessment and Plan: plan or tube removal replacement with T-tube risks discussed including bleeding infection facial nerve paralysis need for further procedures failure to resolve symptoms persistent infections and otorrhea need for prolonged medication use facial nerve paralysis cholesteatoma persistent perforation. (2) Otorrhea: Code(s): H92.10 - Otorrhea, unspecified ear Status: Acute
--- NOTE | 2022-03-09 07:13 | WPDHPUPDATE1 ---
History and Physical Update Update Date/Time: 03/09/22 07:13 History and Physical has been reviewed, including an updated exam of the patient. There are NO changes in the patient's condition. Risks, benefits, and alternatives have been discussed and questions answered. Patient agrees to proceed with procedure.
[2022-03-09 07:14] VITALS: BP 129/78; PULSE 75; RESP 16; TEMP 36.8; O2SAT 98
[2022-03-09] MEDS: LACTATED RINGERS 1,000 ML 30 ML IV CONT (07:18)
[2022-03-09 09:35] VITALS: BP 95/50; PULSE 74; RESP 16; TEMP 36.6; O2SAT 95
--- NOTE | 2022-03-09 09:45 | W.PM.PROC2 ---
Procedure Note - Detailed Date of Procedure 03/09/22 Pre-op Diagnosis bilat chronic otitis media, recurrent otorrhea recurrent ear infections retained myringotomy tubes Post-op Diagnosis Same Procedure Performed Tube removal replacement bilaterally T tubes Surgeon Jose Wooten MD Anesthesia General (Mask) Indications See above Findings Bilaterally obstructed tubes covered in biofilm Description of Procedure Patient identified consent verified. Patient brought operating. Time-out performed. General anesthesia induced mask ventilation maintained. Patient prepped draped halie microscope brought in. Second time-out performed. Ketchum microscope utilized ears visualized bilaterally T tubes removed with alligator forceps new T tubes cut into appropriate length placed in the same myringotomy. No blood loss this was a bilateral procedure tubes were blocked bilaterally left more than right. Patient tolerated the procedure well no blood loss no complications which were immediate. Care the patient given Anesthesiology. Patient taken to PACU. Drains No Packing No Pathology None sent Complications No immediate complications Condition Stable Disposition PACU
[2022-03-09 09:50] VITALS: BP 99/62; PULSE 62; RESP 15; O2SAT 96
[2022-03-09 10:05] VITALS: BP 111/69; PULSE 41
[2022-03-09 10:35] VITALS: BP 114/62; PULSE 56
== END 2022-03-09 10:45 | disposition home or self-care (01) ==
PROVIDERS: PCP Nurse Practitioner Family; Visit Provider Otolaryngology
PROC: (CPT 69424; principal; 2022-03-09 08:45)
DX: H95.89 Other postprocedural complications and disorders of the ear and mastoid process, not elsewhere classified (principal); H92.10 Otorrhea, unspecified ear; Z96.22 Myringotomy tube(s) status; H66.93 Otitis media, unspecified, bilateral
CPT/HCPCS: 69436; J1100; J2405; J2704; J7120

== ENCOUNTER 2022-03-23 10:39 | Outpatient (CLI) | payer OTHER, SELFPAY ==
[2022-03-23 17:11] LABS: T4 Thyroxine 9.64 ug/dL (5.53-11.0)
[2022-03-28 10:09] LABS: FSH 2.2 mIU/mL (***); LH 1.9 mIU/mL (***)
[2022-03-29 13:48] LABS: Z Score Female -1.3 SD (-2.0 - +2.0)
== END 2022-03-23 10:40 | disposition home or self-care (01) ==
LOC: ANHLAB 10:44
PROVIDERS: PCP Nurse Practitioner Family; Referring Provider Internal Medicine Endocrinology, Diabetes & Metabolism; Visit Provider Obstetrics & Gynecology
DX: D35.2 Benign neoplasm of pituitary gland (principal); N92.6 Irregular menstruation, unspecified
CPT/HCPCS: 36415; 83001; 83002; 84305; 84436; 84443

== ENCOUNTER 2022-05-03 11:57 | Outpatient (NON) | payer OTHER, SELFPAY | END 2022-05-03 11:58 | disposition home or self-care (01) | LOC: ANHLAB 11:59 | PROVIDERS: PCP Nurse Practitioner Family; Visit Provider Obstetrics & Gynecology | DX: R39.9 Unspecified symptoms and signs involving the genitourinary system (principal) | CPT/HCPCS: 87086; 87088 ==

== ENCOUNTER 2022-07-23 07:03 | Outpatient (CLI) | payer OTHER, SELFPAY ==
[2022-07-23 08:06] LABS: Beta HCG Quantitative < 2.39 mIU/ML
== END 2022-07-23 07:04 | disposition home or self-care (01) ==
LOC: ANHLAB 07:05
PROVIDERS: PCP Nurse Practitioner Family; Visit Provider Obstetrics & Gynecology
DX: Z32.01 Encounter for pregnancy test, result positive (principal)
CPT/HCPCS: 36415; 84702

== ENCOUNTER 2022-11-09 13:25 | Outpatient (CLI) | payer OTHER, SELFPAY ==
[2022-11-09 14:45] LABS: Appearance Urine Turbid (Clear); Bacteria Urine None Seen /hpf; Bilirubin Urine Negative (Negative); Blood Urine Negative (Negative); Color Urine Yellow (Yellow); Glucose Urine UA Negative (Negative); Ketones Urine Trace mg/dL (Negative); Leukocyte Esterase Ur 1+ LEU/UL (NEGATIVE); Need Manual Microscopic Reviewed; Nitrate Urine Negative (Negative); Non Pathogenic Casts 0-2; Protein Urine Negative (Negative); RBC Urine 21-50 /hpf (0-2); Specific Grav Ur 1.016 (1.001-1.035); Squamous Epithelial Cell Urine Moderate /hpf (Few); Urobilinogen Urine 0.2 mg/dL (<2.0); pH Urine 5.5 (5.0-9.0)
[2022-11-09 14:51] LABS: Add Urine Microscopic? YES
== END 2022-11-09 13:26 | disposition home or self-care (01) ==
LOC: ANHLAB 13:27
PROVIDERS: PCP Nurse Practitioner Family; Visit Provider Obstetrics & Gynecology
DX: R39.9 Unspecified symptoms and signs involving the genitourinary system (principal)
CPT/HCPCS: 81001; 87086

== ENCOUNTER 2023-03-23 10:33 | Outpatient (CLI) | payer OTHER, SELFPAY | END 2023-03-23 10:34 | disposition home or self-care (01) | LOC: ANHLAB 10:36 | PROVIDERS: PCP Nurse Practitioner Family; Visit Provider Internal Medicine Endocrinology, Diabetes & Metabolism | DX: E24.0 Pituitary-dependent Cushing's disease (principal) | CPT/HCPCS: 36415 ==

== ENCOUNTER 2023-04-12 08:18 | Emergency (ER) | payer OTHER, SELFPAY ==
--- NOTE | 2023-04-12 08:22 | ED.URI ---
HPI - URI/Sore Throat General Chief Complaint: Upper Respiratory Infection Stated Complaint: congestion,bilateral ear drainage Time Seen by Provider: 04/12/23 08:36 Source: patient, RN notes reviewed and old records reviewed Mode of arrival: ambulatory Limitations: no limitations History of Present Illness HPI Narrative: 28-year-old female presents to [facility] complaints of nasal drainage, postnasal drip cough sinus pressure bilateral ear pain with drainage that started on March 18, 2025 days ago. Has history tubes in her ears. States that it started on Saturday, states that she did feel better Saturday but then got worse on Saturday. Has a recurrent issue with sinus issues States that she is taking Mucinex Onset (ago): day(s) (4) Related Data Home Medications Medication Instructions Recorded Confirmed escitalopram oxalate 10 mg tablet 10 mg DIRECTED 04/12/23 04/12/23 loratadine 10 mg tablet (Claritin) 10 mg PO DAILY 04/12/23 04/12/23 Allergies Allergy/AdvReac Type Severity Reaction Status Date / Time No Known Allergies Allergy Unknown Verified 11/14/22 14:36 Review of Systems Review of Systems: All systems reviewed & are unremarkable except as noted in HPI and below Constitutional: Constitutional: Reports no additional constitutional complaints Eyes: Eyes: Reports no additional eye complaints ENT: Reports as per HPI and Reports sinus pain Cardiovascular: Cardiovascular: Reports no additional cardiovascular complaints, Denies chest pain and Denies dyspnea Respiratory: Respiratory: Reports no additional respiratory complaints, Denies chest congestion, Denies cough and Denies dyspnea Gastrointestinal: Gastrointestinal: Reports no additional gastrointestinal complaints, Denies abdominal pain, Denies nausea and Denies vomiting Musculoskeletal: Musculoskeletal: Reports no additional musculoskeletal complaints Integumentary/Breasts: Skin/Breast: Reports system reviewed and no additional complaints, except as docu Neurologic: Reports system reviewed and no additional complaints, except as documented Psychiatric: Psychiatric: Reports no additional psychiatric complaints Allergic/Immunologic: Allergic/Immunologic: Reports no additional allergic/immunologic complaints PMFSH Past Medical History Medical History BRBPR (bright red blood per rectum) [place] syndrome Diverticulitis large intestine GERD (gastroesophageal reflux disease) History of pituitary adenoma Nausea Pituitary adenoma Vaginal delivery Surgical History Surgical History History of placement of ear tubes Hx of brain surgery 30% excision of pituitary gland S/P foot surgery, right Family History Family History Other No pertinent family history Social History Social History Smoking status: Never smoker Alcohol intake: never Substance use: never Substance use type: does not use Lack of Transportation: No Lack of Food: Never True Current Housing: I Have Housing Concerned About Future Housing: No Difficulty Paying Gas/Electric Bills: No Difficulty Paying for Meds: No Currently Unemployed: No Education: High School Diploma/GED Difficulty w/ Childcare or Family Care: No Living arrangements: with family Occupation/Education: occupation Gender identity (if verbalized by the patient): Female Sexual Orientation (if Verbalized by the Patient): Straight or Heterosexual Spiritual care concerns: No Comments At the time of my signature, I reviewed and agree with the nursing past medical, surgical, social, and family history. There is no relevant family history pertinent to the patient complaint. Exam Const: General: cooperative, healthy appearing, comfortable, no acute distress, well develo
[2023-04-12 08:35] VITALS: BP 121/77; PULSE 99; RESP 18; TEMP 36.1; O2SAT 99
[2023-04-12 08:38] VITALS: BP 121/77; PULSE 99; RESP 18; TEMP 36.1; O2SAT 99
== END 2023-04-12 09:00 | disposition home or self-care (01) ==
PROVIDERS: Emergency Provider Nurse Practitioner
DX: J01.40 Acute pansinusitis, unspecified (principal); R09.82 Postnasal drip; Z79.899 Other long term (current) drug therapy
CPT/HCPCS: 99213; G0463

== ENCOUNTER 2023-05-30 08:01 | Emergency (ER) | payer OTHER, SELFPAY ==
--- NOTE | 2023-05-30 08:18 | ED.URI ---
HPI - URI/Sore Throat General Chief Complaint: Upper Respiratory Infection Stated Complaint: nausea,cough,bodyaches Time Seen by Provider: 05/30/23 08:18 Source: patient Mode of arrival: ambulatory Limitations: no limitations History of Present Illness HPI Narrative: Mable is a 28-year-old female patient presenting to the clinic today with complaints of fever, chills, cough, nausea, and body aches since Saturday night. Highest fever of 101. She reports that her went to the doctor was similar symptoms and he tested positive for the flu. No known exposure to COVID or strep. Related Data Allergies Allergy/AdvReac Type Severity Reaction Status Date / Time No Known Allergies Allergy Unknown Verified 11/14/22 14:36 Review of Systems Review of Systems: Pertinent positives per HPI. Patient denies any fever, chills, rash, headache, visual changes, dizziness, runny nose, sore throat, shortness of breath, chest pain, palpitations, vomiting, diarrhea, constipation, abdominal pain, or any urinary issues. [facility] Past Medical History Medical History BRBPR (bright red blood per rectum) [place] syndrome Diverticulitis large intestine GERD (gastroesophageal reflux disease) History of pituitary adenoma Nausea Pituitary adenoma Vaginal delivery Surgical History Surgical History History of placement of ear tubes Hx of brain surgery 30% excision of pituitary gland S/P foot surgery, right Family History Family History Other No pertinent family history Social History Social History Smoking status: Never smoker Alcohol intake: never Substance use: never Substance use type: does not use Lack of Transportation: No Lack of Food: Never True Current Housing: I Have Housing Concerned About Future Housing: No Difficulty Paying Gas/Electric Bills: No Difficulty Paying for Meds: No Currently Unemployed: No Education: High School Diploma/GED Difficulty w/ Childcare or Family Care: No Living arrangements: with family Occupation/Education: occupation Gender identity (if verbalized by the patient): Female Sexual Orientation (if Verbalized by the Patient): Straight or Heterosexual Spiritual care concerns: No Comments At the time of my signature, I reviewed and agree with the nursing past medical, surgical, social, and family history. There is no relevant family history pertinent to the patient complaint. Exam Narrative: General: Well-developed, obese in no apparent distress Head: Normocephalic, atraumatic Eyes: Pupils equally round and reactive to light bilaterally, EOM intact, sclera and conjunctive clear, no discharge, lids normal Ears: TMs intact and opaque, tubes in place bilaterally, ear canals clear, no drainage, grossly hearing normal. Nose: Nares patent, clear nasal discharge, no inflammation, no sinus tenderness. Mouth: Oropharynx red without lesions or masses, good dentition, MMM. Postnasal drip Neck: Supple, trachea midline, no enlargement of anterior or posterior cervical nodes, no thyroid masses or goiter palpable. Cardio: Regular rate and rhythm, s1 and s2 normal, no murmur appreciated. Resp: Clear to auscultation bilaterally anteriorly and posteriorly, no rhonchi, rales, wheezing or rubs Course Course Emergency Course: Portions of this record may have been created with voice recognition software. Level of Care: Express Care Visit Vital Signs Vital signs: Vital signs reviewed MDM - URI/Sore Throat MDM Narrative Medical decision making narrative: At the time of visit patient is resting comfortably on the exam table. Prescription for Zofran was sent to the pharmacy for nausea. Patient is nontoxic appearing. strep and influ
[2023-05-30 08:19] VITALS: BP 123/76; PULSE 115; RESP 18; TEMP 37.1; O2SAT 98
== END 2023-05-30 08:53 | disposition home or self-care (01) ==
PROVIDERS: Emergency Provider Nurse Practitioner Family
DX: B34.9 Viral infection, unspecified (principal); J06.9 Acute upper respiratory infection, unspecified; R09.82 Postnasal drip; K21.9 Gastro-esophageal reflux disease without esophagitis
CPT/HCPCS: 87081; 87804; 87880; 99213; G0463